=== PATIENT | female | born 1985 | race African-American/Black ===

== ENCOUNTER 2017-03-19 10:24 | Emergency (ER) | payer MEDICAID, OTHER ==
[~2017-03-19] VITALS: Ht 170.2 cm; Wt 100.0 kg
[~2017-03-19 10:24] MED LIST: ALBU8.5H8 IH; BUDE10.2 IH
[2017-03-19] MEDS ORDERED: IPRATROPIUM BROMIDE 0.5 MG/2.5 ML NEB SOLUTION NEB ONE ×2 (11:15→11:45)
[2017-03-19] MEDS ORDERED: ALBUTEROL SULFATE 2.5 MG/0.5 ML NEB SOLUTION NEB ONE (11:15)
[2017-03-19] MEDS ORDERED: 0.9% SODIUM CHLORIDE 5 ML NEB SOLUTION NEB ONE ×2 (11:34→11:56)
[2017-03-19] MEDS ORDERED: DEXAMETHASONE SOD PHOS 4 MG/ML 5 ML VIAL IM ONE (11:45)
[2017-03-19] MEDS ORDERED: ALBUTEROL SULFATE 5 MG/ML 20 ML NEB SOLN [BULK] NEB ONE (11:45)
[2017-03-19 12:59] LABS: INFLUENZA TYPE A NEGATIVE FOR TYPE A (NEGATIVE); INFLUENZA TYPE B NEGATIVE FOR TYPE B (NEGATIVE)
[2017-03-19 13:26] VITALS: BP 141/89
== END 2017-03-19 13:27 | disposition home or self-care (01) ==
LOC: EMS 10:25
DX: J45.901 Unspecified asthma with (acute) exacerbation (principal)
CPT/HCPCS: 71010; 87804; 94644; 96372; 99285; J1100; 94640